=== PATIENT | female | born 1975 | race Two or more races ===

== ENCOUNTER 2017-11-30 10:43 | Emergency (ER) | payer OTHER ==
[~2017-11-30] VITALS: Ht 160 cm; Wt 54.4 kg
[~2017-11-30 10:43] MED LIST: ASACOL; ASACOL HD800 MG; FLAGYL500MG PO; PREDNISONE10 MG; PREDNISONE20 MG; ZANTAC150 MG PO
[2017-11-30] MEDS ORDERED: ASACOL HD800 MG (11:11)
== END 2017-11-30 13:58 | disposition home or self-care (01) ==
LOC: ER
DX: M54.5 Low back pain (principal); K29.70 Gastritis, unspecified, without bleeding